=== PATIENT | female | born 1935 | race Caucasian/White ===

== ENCOUNTER 2016-11-07 09:24 | Observation (INO) | payer MEDICARE, OTHER ==
--- NOTE | ~2016-11-07 | CT71 ---
[facility] A Service [facility] RADIOLOGY TEXT RESULTS PATIENT: ROBIN WATSON LOCATION: [facility] 221- : 35 UNIT #: [id number] AGE: [address]: Ed Gilmore MD SEX: F ORDER DR: [id number] [facility] [address]. [place], [place] [address] [id number] I MR#: [id number] #: [id number] NAME: ROBIN WATSON : 1935 SEX: F STUDY DATE/TIME: 11/07/2016 9:15 UNIT: [facility] ROOM: [facility] STUDY DESCRIPTION: CT Head Wo Contrast Attending Physician: Ed Gilmore M.D. Ordering Physician: Ed Doctor [id number] [facility] Primary Care Physician: Herlinda Toney M.D. MEDICAL IMAGING REPORT This report is preliminary unless electronic signature is present EXAM Head CT, 11/07 INDICATION Nausea and increasing confusion today. History of dementia. TECHNIQUE This CT exam was performed with one or more of the following radiation dose reduction techniques: automatic exposure control, adjustment of mA and/or kV according to patient size, and iterative reconstruction. FINDINGS Axial images were obtained from the base to the vertex without contrast. Comparison is made with 05/19/2012. There has been some progression of generalized atrophy. Ventricular size and configuration are normal. Chronic small vessel ischemic change is noted in the white matter. There are old bilateral basal ganglia infarcts. No acute infarct or hemorrhage is seen. There are no skull fractures. There are atherosclerotic calcifications in the carotid siphons. Area of calcification along the inner table of the skull in the right posterior parietal region may reflect a calcified meningioma. This measures about 13.0 x 10.0 mm. IMPRESSION No acute intracranial abnormalities. There is progressive generalized atrophy. There is a potential calcified meningioma abutting the inner table of the skull in the right posterior parietal region. No associated adjacent edema. Dictated by... Roshan Espinal Jr., M.D. [facility] A Service [facility] RADIOLOGY TEXT RESULTS PATIENT: ROBIN WATSON LOCATION: [place] [address] : 35 UNIT #: [id number] AGE: [address]: Ed Gilmore MD SEX: F ORDER DR: THIS IS AN ELECTRONICALLY VERIFIED REPORT Roshan Espinal Jr., M.D. at 11/08/2016 10:01 AM LADARIUS/laz TD: 11/07/2016 09:55 JOB #: [id number] MEDICAL IMAGING REPORT Page 1 of 1 COPY
--- NOTE | ~2016-11-07 | EKG ---
PATIENT: ROBIN WATSON UNIT #: [id number] Ventricular Rate: 56 BPM Atrial Rate: 56 BPM P-R Interval: 212 ms QRS Duration: 88 ms Q-T Interval: 502 ms QTC Calculation(Bezet): 484 ms P Clanton: 89 degrees Calculated R Clanton: -2 degrees Calculated T Clanton: 79 degrees Diagnosis Line: Sinus bradycardia with 1st degree A-V block Diagnosis Line: RSR' or QR pattern in V1 suggests right Diagnosis Line: ventricular conduction delay Diagnosis Line: Otherwise normal ECG Diagnosis Line: When compared with ECG of 03-NOV-2015 11:56, Diagnosis Line: Vent. rate has decreased BY 27 BPM Diagnosis Line: Confirmed by JACKY BACON MD ([id number]) on 11/07/2016 Diagnosis Line: 10:44:02 PM INTERPRETING MD: JORDI ARCHULETA
--- NOTE | ~2016-11-07 | DS ---
Unit #: [id number] #: [id number] Patient: ROBIN WATSON [id number] [address] [address] [id number] I MR#: [id number] NAME: ROBIN WATSON ROOM: 221 Age: 81 Sex: F Admission Date: 11/07/2016 : 1935 Discharge Date: 11/08/2016 Attending Physician: Ed Gilmore M.D. Primary Care Physician: Herlinda Toney M.D. DISCHARGE SUMMARY FINAL DIAGNOSIS Elevated lactic acid level on suspicion of sepsis. Sepsis ruled out. SECONDARY DIAGNOSES 1. Hypertension. 2. Hyperlipidemia. 3. Gastroesophageal reflux disease. 4. Alzheimer dementia. 5. Diabetes mellitus type 2. 6. History of cerebrovascular accident with no residual effects. CONSULTANTS None. HOSPITAL COURSE The patient is an 81-year-old female who was brought to the emergency room for evaluation on account of concerns for alteration of mental status and some vague abdominal pain. In the emergency room her lactic acid level was 4. She was given some fluids and it did come down to 3.1. IV fluids were continued and lactic acid level today is 1.4. There were no signs or symptoms of infection. No fever. Workup is completely normal. She was evaluated and determined to be stable for discharge. She will discharge in stable condition for outpatient followup with her primary care provider. DISCHARGE MEDICATIONS 1. Losartan/hydrochlorothiazide 1 tablet p.o. daily. 2. Mirtazapine 30 mg p.o. daily. 3. Metformin 1000 mg p.o. b.i.d. but I recommend discontinuation per parameters. 4. Quetiapine 100 mg p.o. b.i.d. 5. Aricept 10 mg p.o. daily. 6. Simvastatin 40 mg p.o. daily. 7. Multivitamin 1 tablet p.o. daily. 8. Omeprazole 40 mg p.o. daily. 9. Calcium carbonate 500 mg p.o. daily. 10. Folic acid 0.4 mg p.o. daily. 11. Ascorbic acid 1000 mg p.o. daily. 12. Vitamin B12 1000 mcg p.o. daily. FOLLOWUP She is going to follow up with her primary care physician in the next 3-5 days. Recommend checking CBC and BMP for close followup with her primary care physician. Unit #: [id number] #: [id number] Patient: ROBIN WATSON Time spent coordinating discharge was about 25 minutes. Dictated by... Eunice Ferrari TD: 11/08/2016 12:44 JOB #: [id number] DISCHARGE SUMMARY Page 1 of 1 X Ed Gilmore MD X DISCHARGE SUMMARY
--- NOTE | ~2016-11-07 | HP ---
Unit #: [id number] #: [id number] Patient: ROBIN WATSON [id number] [address] [address] [id number] I MR#: [id number] NAME: ROBIN WATSON ROOM: 221 Age: 81 Sex: F Admission Date: 11/07/2016 : 1935 Attending Physician: Ed Gilmore M.D. Primary Care Physician: Herlinda Toney M.D. HISTORY AND PHYSICAL CHIEF COMPLAINT Abdominal pain. HISTORY OF PRESENT ILLNESS The patient is a pleasantly demented 81-year-old female with a past medical history of hypertension, hyperlipidemia, GERD, some what looks like Alzheimer dementia, diabetes, and stroke, who basically presented to the ER for evaluation on account of some abdominal pain and nausea. She has had a stroke in the past. History was somewhat conflicting and was very difficult to obtain per the ER doctor. Ultimately, workup revealed an elevated lactic acid of 4. She received fluids in the emergency room, and lactic acid level did come down to 3.1. Other than that, patient did not seem to be in any form of discomfort. REVIEW OF SYSTEMS Limited as patient really was demented and so cognitively impaired that answers were not consistent. So a 10-point review of systems was attempted and pertinent positives noted above, but it really was not obtainable. PAST MEDICAL HISTORY 1. Hypertension. 2. Hyperlipidemia. 3. Gastroesophageal reflux disease. 4. Dementia. 5. Diabetes. 6. Cerebrovascular accident in the past with no residual defects. PAST SURGICAL HISTORY EGD and colonoscopy. ALLERGIES No known drug allergies. MEDICATIONS 1. Omeprazole 40 mg p.o. daily. 2. Vitamin B12 at 100 mcg p.o. daily. 3. Multivitamin 1 tablet p.o. daily. 4. Vitamin C 1000 mg p.o. daily. 5. Simvastatin 40 mg p.o. daily. 6. Aricept 10 mg p.o. daily. 7. Mirtazapine 30 mg p.o. daily. 8. Tums 500 mg p.o. daily. 9. Folic acid 0.4 mg p.o. daily. Unit #: [id number] #: [id number] Patient: ROBIN WATSON 10. Losartan and hydrochlorothiazide 50/12.5 at 1 tablet p.o. daily. 11. Metformin 1000 mg p.o. twice daily. 12. Seroquel 100 mg p.o. twice daily. 13. Os-Jean 500 mg p.o. daily. SOCIAL HISTORY Patient resides in some sort of assisted living facility. Patient is Do Not Resuscitate. FAMILY HISTORY From previous documentation, her mother at the age of 54 of cervical cancer. Her dad at the age of 58 of a myocardial infarction. PHYSICAL EXAMINATION GENERAL: On examination, she was comfortable and not in any distress. VITAL SIGNS: Blood pressure was 110/58, pulse 84, respiratory rate 15, and temperature 98.8. HEENT: Pupils were equal and reactive to light and accommodation. NECK: Supple without thyromegaly. CARDIOVASCULAR: First and second heart sounds only. ABDOMEN: Soft. Moved with respiration. No palpable organomegaly. CENTRAL NERVOUS SYSTEM: Essentially normal. SKIN: Warm and dry with no rashes. DIAGNOSTIC STUDIES LABORATORY: Chemistries with glucose of 130, BUN and creatinine 16 and 0.7, and sodium and potassium 142 and 3.7. CBC with WBC of 7.9, hemoglobin and hematocrit 13.1 and 39.5, and platelet count of 142,000. Lactic acid level of 4. Repeat at 1120 hours was 3.1. IMAGING: Chest x-ray showed no active disease with stable cardiomegaly. CARDIOLOGY: EKG sinus bradycardia with first degree AV block, otherwise normal. ASSESSMENT 1. Abdominal pain, resolved. 2. Possible early sepsis. This is in light of elevated lactic acid level. Will admit patient to observation, put her on IV fluids, and repeat lactic acid level in the morning. The reason for elevated lactic acid may also be metformin. Especially given patient's age, metformin may not be the best course for patient in managing her diabetes, though her renal function seems to be within normal limits at 0.7. This I will defer to her primary care physician. 3. Gastrointestinal prophylaxis. She does have a history of gastroesophageal reflux disease. Will continue omeprazole. I will substitute per house formulary. 4. For deep venous thrombosis prophylaxis, will put her on sequential compression devices while she is in bed. However, my concern is that this may constitute some form of restraint. Especially given the fact that patient does have dementia, this may exacerbate her delirium should this occur during this hospitalization. PLAN Will get a CBC and BMP in the morning and repeat lactic acid level. Put her on Accu-Cheks q.a.c. and at bedtime and low-dose sliding scale. Continue normal saline at 125 mL/hour and possibly discharge patient in the morning when lactic acid level has hopefully normalized and especially Unit #: [id number] #: [id number] Patient: ROBIN WATSON in the absence of any clinical signs and symptoms of infection. Dictated by Eunice Ferrari/jarad TD: 11/07/2016 20:40 JOB #: [id number] HISTORY AND PHYSICAL Page 1 of 1 X Ed Gilmore MD HISTORY AND PHYSICAL
--- NOTE | ~2016-11-07 | CR72 ---
[facility] A Service of [facility] RADIOLOGY TEXT RESULTS PATIENT: ROBIN WATSON LOCATION: [facility] 221-01 : 35 UNIT #: [id number] AGE: [address]: Ed Gilmore MD SEX: F ORDER DR: [id number] [facility] [address] [place], [place] [address] [id number] MR#: [id number] #: [id number] NAME: ROBIN WATSON : 1935 SEX: F STUDY DATE/TIME: 11/07/2016 8:39 UNIT: [facility] ROOM: STUDY DESCRIPTION: CR Chest Single View Portable Attending Physician: Rhoda Grande A.P.R.N. Ordering Physician: Ed Doctor [id number] [facility] Primary Care Physician: Herlinda Toney M.D. MEDICAL IMAGING REPORT This report is preliminary unless electronic signature is present EXAM Portable chest, 11/07 INDICATION Weakness, nausea and vomiting for 1 day. History of hypertension. FINDINGS AP portable chest is compared with 11/02/2015. There is stable mild cardiomegaly. Lungs are clear. Vascularity is normal. There is no pneumothorax. There is some atherosclerotic disease in the aorta. IMPRESSION Stable cardiomegaly. No active disease. Dictated by... Roshan Espinal Jr., M.D. THIS IS AN ELECTRONICALLY VERIFIED REPORT Roshan Espinal Jr., M.D. at 11/07/2016 3:53 PM LADARIUS/laz TD: 11/07/2016 09:32 JOB #: [id number] MEDICAL IMAGING REPORT Page 1 of 1 COPY
[~2016-11-07 09:24] MED LIST: ASPIRIN81 MG PO; ATIVAN0.5 M1 PO; AUGMENTIN PO; AVALIDE 150-12.1 TAB PO; CALCIUM PO; COZAAR PO; DONEPEZIL HCL10 MG PO; FA-80.8 M1 PO; FLAGYL PO; FOLTX TABLET1 EACH PO; IRON TABLETS1 TAB PO; KEFLEX500 M2 PO; LORAZEPAM1 MG PO; LOSARTAN-HCTZ1 EAC1 PO; LOSARTAN-HCTZ1 EACH PO; MEGACE ORA400 MG/10 PO; METFORMIN HCL1000 M1 PO; METFORMIN HCL500 M1 PO; MIRTAZAPINE30 M1 PO; MONTELUKAST SOD10 MG PO; MULTI VITAMIN1 EACH PO; OMEPRAZOLE40 M1 PO; ONDANSETRON ODT4 MG DOB; PRILOSEC PO; QUETIAPINE FUMA25 MG PO; RIVASTIGMINE1.5 MG PO; SEROQUEL50 MG PO; SIMVASTATIN40 MG PO; TUMS500 M1 PO; TYLENOL325 M1 PO; VITAMIN B12 PO; VITAMIN C1000 M2 PO; ZOCOR PO; ZOFRAN ODT4 MG PO
[2016-11-07 09:25] LABS: BASOPHIL% 0.6 % (0-2.5); EOSINOPHIL# 0.2 X10e3 (0-0.7); EOSINOPHIL% 2.6 % (0.0-7.0); HEMATOCRIT 39.5 % (35.0-45.0); HEMOGLOBIN 13.1 gm/dL (12.0-16.0); LYMPHOCYTE# 2.3 X10e3 (1.0-3.5); LYMPHOCYTE% 29.4 % (17.0-45.0); MEAN CELL VOLUME 93.5 FL (83-96); MEAN CORPUSCULAR HGB CONC 33.2 g/dL (30-36); MEAN PLATELET VOLUME 9.9 FL (6.5-11.5); MONOCYTE# 0.5 X10e3 (0-1.0); NEUTROPHIL# 4.8 X10e3 (1.5-7.1); NEUTROPHIL% 61.4 % (40-75); PLATELET COUNT 142 X10e3 (140-420); RED BLOOD COUNT 4.23 X10e (3.90-5.30); RED CELL DISTRIBUTION WIDTH 13.6 % (11.0-15.5); WHITE BLOOD COUNT 7.9 X10e3 (4.0-10.5)
[2016-11-07 09:27] LABS: DIFF IND NO
[2016-11-07 09:57] LABS: ALBUMIN SERUM 3.9 g/dL (3.5-5.0); BILIRUBIN, DIRECT 0.1 mg/dL (0.0-0.2); BILIRUBIN,INDIRECT 0.6 mg/dL (0.0-0.9); BILIRUBIN,TOTAL 0.7 mg/dL (0.2-2.0); BUN/CREATININE RATIO 17.77; CALCIUM SERUM 9.3 mg/dL (8.4-10.2); CREATININE SERUM 0.9 mg/dL (0.6-1.4); POTASSIUM 3.7 mmol/L (3.5-5.1); PROTEIN TOTAL SERUM 6.6 g/dL (6.0-8.3)
[2016-11-07 10:05] LABS: POC - CKMB <1.0 ng/mL (0.0-7.9); POC - TROPONIN <0.05 ng/mL (<=0.05)
[2016-11-07 10:44] LABS: URINE SOURCE CATH
[2016-11-07 10:46] LABS: POC - CKMB <1.0 ng/mL (0.0-7.9); POC - TROPONIN <0.05 ng/mL (<=0.05)
[2016-11-07 10:48] LABS: URINE APPEARANCE CLEAR; URINE BILIRUBIN NEG (NEG); URINE BLOOD NEG (NEG); URINE COLOR YELLOW; URINE GLUCOSE NEG (NEG); URINE KETONE NEG (NEG); URINE LEUKOCYTE ESTERASE NEG (NEG); URINE NITRATE NEG (NEG); URINE PH 8.5 (5-8); URINE PROTEIN NEG (NEG)
[2016-11-07 10:55] LABS: CULTURE INDICATED? NO
[2016-11-07] MEDS ORDERED: OS-CAL 500500 MG PO (13:46)
[2016-11-08 05:39] LABS: HEMATOCRIT 34.5 % (35.0-45.0); HEMOGLOBIN 11.7 gm/dL (12.0-16.0); MEAN CELL VOLUME 93.2 FL (83-96); MEAN CORPUSCULAR HEMOGLOBIN 31.6 PG (28-34); MEAN CORPUSCULAR HGB CONC 33.9 g/dL (30-36); RED BLOOD COUNT 3.7 X10e (3.90-5.30); RED CELL DISTRIBUTION WIDTH 13.6 % (11.0-15.5); WHITE BLOOD COUNT 8.4 X10e3 (4.0-10.5)
[2016-11-08 06:33] LABS: BUN/CREATININE RATIO 18.75; CALCIUM SERUM 8.6 mg/dL (8.4-10.2); CREATININE SERUM 0.8 mg/dL (0.6-1.4); GLOM FILT RATE Estimated 69.2 mL/min (>60); POTASSIUM 3.8 mmol/L (3.5-5.1)
== END 2016-11-08 13:50 | disposition home or self-care (01) ==
LOC: CED 09:24 → CEDOF 13:40 → C2A 15:46
PROVIDERS: Family Medicine; Nurse Practitioner
DX: R74.0 Nonspecific elevation of levels of transaminase and lactic acid dehydrogenase [LDH] (principal); R10.9 Unspecified abdominal pain; I10 Essential (primary) hypertension; E78.5 Hyperlipidemia, unspecified; K21.9 Gastro-esophageal reflux disease without esophagitis; G30.9 Alzheimer's disease, unspecified; F02.80 Dementia in other diseases classified elsewhere, unspecified severity, without behavioral disturbance, psychotic disturbance, mood disturbance, and anxiety; E11.9 Type 2 diabetes mellitus without complications; Z86.73 Personal history of transient ischemic attack (TIA), and cerebral infarction without residual deficits; Z79.84 Long term (current) use of oral hypoglycemic drugs; I51.7 Cardiomegaly
CPT/HCPCS: 36415; 51701; 70450; 71010; 80048; 80076; 81003; 82150; 82553; 82947; 83605; 83690; 84484; 85025; 85027; 87040; 93005; 96360; 99285; G0378